=== PATIENT | female | born 1975 | race Caucasian/White ===

== ENCOUNTER 2019-04-08 08:25 | Emergency (ER) | payer BC ==
[~2019-04-08] VITALS: Ht 165.1 cm; Wt 61.2 kg
--- NOTE | 2019-04-08 08:42 | NUR ---
Dr Aparicio at the bedside for MSE.
[2019-04-08] MEDS ORDERED: ONDANSETRON 4 MG/2 ML VIAL ONE (08:50)
[2019-04-08] MEDS ORDERED: HYDROMORPHONE 1 MG/1 ML DISP.SYRIN ONE (08:50)
[2019-04-08] MEDS: HYDROMORPHONE 1 MG/1 ML DISP.SYRIN IM ONE (08:56)
[2019-04-08] MEDS: ONDANSETRON 4 MG/2 ML VIAL IM ONE (08:56)
[2019-04-08 08:57] VITALS: BP 110/83
--- NOTE | 2019-04-08 08:57 | NUR ---
Patient discharged to home in stable conditon. Written and verbal after care instructions given. Patient verbalizes understanding of instructions. Pt left ER w/ steady gait, awaiting in lobby for ride.
== END 2019-04-08 08:58 | disposition home or self-care (01) ==
LOC: ER 08:25
DX: M43.6 Torticollis (principal); Z88.2 Allergy status to sulfonamides; Z88.6 Allergy status to analgesic agent
CPT/HCPCS: 96372 ×2; 99283; J1170; J2405; A4663